=== PATIENT | female | born 1965 | race Caucasian/White ===

== ENCOUNTER 2020-10-08 09:06 | Outpatient (REF) | payer OTHER, SELFPAY ==
[2020-10-08 11:22] LABS: Glucose Urine UA NEG (NEG); Hemoglobin 15.3 g/dl (12.0-16.0); Leukocyte Esterase Urine NEG (NEG); Mean Corpuscular Volume 91.3 fL (80-98); Mean Platelet Volume 11.2 fL (9.4-12.3); Nitrite Urine NEG (NEG); PH 6.5 (5.0-8.0); Platelet Count 208 X10*3/uL (160-400); Red Blood Count 4.93 X10*6/uL (4.20-5.50); Red Cell Distribution Width 13.4 % (11.0-16.0); Urine Blood NEG (NEG); Urine Ketones NEG (NEG); Urine Protein NEG (NEG-TRACE); White Blood Count 3.8 X10*3/uL (4.8-10.8)
[2020-10-08 11:25] LABS: Appearance Urine CLEAR; Color Urine YELLOW
[2020-10-08 11:33] LABS: RBC Urine 0 /HPF (0); Squamous Epithelial Cell Urine 1+ /LPF; WBC Urine 0 /HPF (0-4)
[2020-10-08 12:06] LABS: TSH reflex Free T4 1.26 mIU/mL (0.32-4.0); Vitamin D 25-OH Total 40.6 ng/mL (>30)
[2020-10-08 12:20] LABS: Alanine Aminotransferase 23 U/L (0-31); Albumin Level 4.9 g/dL (3.5-5.0); Alkaline Phosphatase 58 U/L (39-117); Anion Gap 12 (12-20); Aspartate Amino Transferase 27 U/L (5-31); Bilirubin Total 0.7 mg/dL (0.0-1.0); Blood Urea Nitrogen 14 mg/dL (9-16); Calcium 9.3 mg/dL (8.4-10.2); Carbon Dioxide 32 mmol/L (22-29); Chloride 105 mmol/L (96-108); Estimated Glomerular Filt Rate > 60; Glucose Fasting 82 mg/dL (60-99); Potassium 4.4 mmol/L (3.3-5.1); Sodium 145 mmol/L (135-145)
[2020-10-08 12:26] LABS: Cholesterol 292 mg/dL; HDL Cholesterol 122 mg/dL; LDL Cholesterol Calculated 156 mg/dl; Triglycerides 74 mg/dL
== END 2020-10-08 09:07 | disposition home or self-care (01) ==
LOC: HO.HMGCLDS 09:06
PROVIDERS: PCP Internal Medicine; Visit Provider Internal Medicine
DX: Z00.00 Encounter for general adult medical examination without abnormal findings (principal); E03.9 Hypothyroidism, unspecified
CPT/HCPCS: 36415; 80053; 80061; 81001; 82306; 84443; 85027

== ENCOUNTER 2021-10-10 08:31 | Outpatient (REF) | payer OTHER, SELFPAY ==
[2021-10-10 11:39] LABS: Appearance Urine CLEAR; Color Urine YELLOW; Glucose Urine UA NEG (NEG); Leukocyte Esterase Urine NEG (NEG); Nitrite Urine NEG (NEG); PH 5.5 (5.0-8.0); Specific Gravity - Urine >= 1.030 (1.005-1.025); Urine Blood NEG (NEG); Urine Ketones 5 MG/DL (NEG); Urine Protein NEG (NEG-TRACE)
[2021-10-10 11:50] LABS: Hematocrit 43.9 % (37.0-47.0); Hemoglobin 14.4 g/dl (12.0-16.0); Mean Corpuscular HGB Conc 32.8 g/dl (31.0-35.0); Mean Corpuscular Hemoglobin 29.8 pg (27.0-33.0); Mean Corpuscular Volume 90.9 fL (80.0-98.0); Mean Platelet Volume 11.4 fL (9.4-12.3); Platelet Count 187 X10*3/uL (160-400); Red Blood Count 4.83 X10*6/uL (4.20-5.50); Red Cell Distribution Width 13.6 % (11.0-16.0); White Blood Count 4.8 X10*3/uL (4.8-10.8)
[2021-10-10 11:56] LABS: Mucus Urine TRACE /LPF; RBC Urine 0-2 /HPF (0); Squamous Epithelial Cell Urine TRACE /LPF; WBC Urine 0 /HPF (0-4)
[2021-10-10 12:15] LABS: Alanine Aminotransferase 22 U/L (0-31); Albumin Level 4.5 g/dL (3.5-5.0); Alkaline Phosphatase 45 U/L (39-117); Anion Gap 12 (12-20); Aspartate Amino Transferase 31 U/L (5-31); Bilirubin Total 0.6 mg/dL (0.0-1.0); Blood Urea Nitrogen 13 mg/dL (9-16); Calcium 9.7 mg/dL (8.4-10.2); Carbon Dioxide 30 mmol/L (22-29); Chloride 104 mmol/L (96-108); Cholesterol 274 mg/dL; Estimated Glomerular Filt Rate > 60; Glucose Fasting 81 mg/dL (60-99); HDL Cholesterol 130 mg/dL; LDL Cholesterol Calculated 133 mg/dl; Sodium 142 mmol/L (135-145); Total Protein 7.5 g/dL (6.5-8.0); Triglycerides 59 mg/dL
[2021-10-10 12:20] LABS: TSH reflex Free T4 2.07 uIU/mL (0.32-4.0)
== END 2021-10-10 08:32 | disposition home or self-care (01) ==
LOC: HO.HMGCLDS 08:31
PROVIDERS: PCP Internal Medicine; Visit Provider Internal Medicine
DX: Z00.00 Encounter for general adult medical examination without abnormal findings (principal); D70.9 Neutropenia, unspecified; E03.9 Hypothyroidism, unspecified
CPT/HCPCS: 36415; 80053; 80061; 81001; 84443; 85027

== ENCOUNTER 2022-11-07 08:07 | Outpatient (REF) | payer OTHER, SELFPAY ==
[2022-11-07 11:04] LABS: MANUAL DIFF FLAG NO
[2022-11-07 11:11] LABS: Basophils Percent Auto 1.1 % (0-2); Eosinophils Absolute Auto 0.1 X10*3/uL (0.0-0.4); Eosinophils Percent Auto 2.6 % (0-4); Hematocrit 42.1 % (37.0-47.0); Hemoglobin 14.4 g/dl (12.0-16.0); Lymphocytes Absolute Auto 1.1 X10*3/uL (1.2-4.9); Lymphocytes Percent Auto 30.7 % (20-40); Mean Corpuscular HGB Conc 34.2 g/dl (31.0-35.0); Mean Corpuscular Hemoglobin 30.3 pg (27.0-33.0); Mean Corpuscular Volume 88.4 fL (80.0-98.0); Mean Platelet Volume 11.1 fL (9.4-12.3); Monocytes Absolute Auto 0.4 X10*3/uL (0.1-1.2); Monocytes Percent Auto 10.3 % (2-11); Neutrophils Absolute Auto 1.9 x10*3/uL (2.0-8.3); Neutrophils Percent Auto 55.3 % (45-73); Platelet Count 210 X10*3/uL (160-400); Red Blood Count 4.76 X10*6/uL (4.20-5.50); Red Cell Distribution Width 13.6 % (11.0-16.0); White Blood Count 3.5 X10*3/uL (4.8-10.8)
[2022-11-07 11:28] LABS: Alanine Aminotransferase 34 U/L (0-31); Albumin Level 4.6 g/dL (3.5-5.0); Alkaline Phosphatase 47 U/L (39-117); Anion Gap 12 (12-20); Aspartate Amino Transferase 34 U/L (5-31); Bilirubin Total 0.5 mg/dL (0.0-1.0); Blood Urea Nitrogen 13 mg/dL (9-16); Calcium 9.5 mg/dL (8.4-10.2); Carbon Dioxide 30 mmol/L (22-29); Chloride 106 mmol/L (96-108); Cholesterol 306 mg/dL; Estimated Glomerular Filt Rate > 60; Glucose Fasting 87 mg/dL (60-99); HDL Cholesterol 129 mg/dL; Iron 73 mcg/dL (30-160); LDL Cholesterol Calculated 165 mg/dl; Percent Iron Saturation 23 % (15-50); Potassium 4.2 mmol/L (3.3-5.1); Sodium 144 mmol/L (135-145); Total Iron Binding Capacity 316 mcg/dL (228-428); Total Protein 7.5 g/dL (6.5-8.0); Triglycerides 60 mg/dL; Unsaturated Iron Binding 243 ug/dL
[2022-11-07 11:46] LABS: TSH reflex Free T4 1.58 uIU/mL (0.32-4.0); Vitamin D 25-OH Total 98.4 ng/mL (>30)
== END 2022-11-07 08:08 | disposition home or self-care (01) ==
LOC: HO.HMGCLDS 08:07
PROVIDERS: PCP Internal Medicine; Visit Provider Internal Medicine
DX: Z00.00 Encounter for general adult medical examination without abnormal findings (principal); E55.9 Vitamin D deficiency, unspecified; E78.5 Hyperlipidemia, unspecified; E03.9 Hypothyroidism, unspecified; D70.9 Neutropenia, unspecified; Z78.0 Asymptomatic menopausal state
CPT/HCPCS: 36415; 80053; 80061; 82306; 83540; 84443; 85025

== ENCOUNTER 2023-01-22 08:50 | Outpatient (REF) | payer OTHER, SELFPAY ==
[2023-01-22 12:10] LABS: Alanine Aminotransferase 43 U/L (0-31); Albumin Level 4.7 g/dL (3.5-5.0); Alkaline Phosphatase 53 U/L (39-117); Anion Gap 10 (12-20); Aspartate Amino Transferase 43 U/L (5-31); Bilirubin Total 0.5 mg/dL (0.0-1.0); Blood Urea Nitrogen 14 mg/dL (9-16); Calcium 9.5 mg/dL (8.4-10.2); Carbon Dioxide 31 mmol/L (22-29); Chloride 105 mmol/L (96-108); Cholesterol 284 mg/dL; Estimated Glomerular Filt Rate > 60; Glucose Random 80 mg/dL (60-115); HDL Cholesterol 137 mg/dL; LDL Cholesterol Calculated 136 mg/dl; Potassium 4.1 mmol/L (3.3-5.1); Sodium 142 mmol/L (135-145); Total Protein 7.6 g/dL (6.5-8.0); Triglycerides 56 mg/dL
== END 2023-01-22 08:51 | disposition home or self-care (01) ==
LOC: HO.HMGCLDS 08:50
PROVIDERS: PCP Internal Medicine; Visit Provider Internal Medicine
DX: E78.5 Hyperlipidemia, unspecified (principal)
CPT/HCPCS: 36415; 80053; 80061

== ENCOUNTER 2023-02-28 08:17 | Outpatient (REF) | payer OTHER, SELFPAY ==
--- NOTE | ~2023-02-28 | US_ITS ---
EXAMINATION: US ABDOMEN LIMITED CLINICAL INFORMATION: Elevated LFTs. COMPARISON: None available. TECHNIQUE: Real-time imaging of the right upper quadrant abdominal viscera. FINDINGS: PANCREAS: Normal. LIVER: Normal. The liver is normal in size. The liver contour is normal. There is diffuse increased liver parenchymal echogenicity, consistent with hepatic steatosis. No focal hepatic lesion. There is no intrahepatic biliary duct dilatation seen. GALLBLADDER: The gallbladder is physiologically distended without evidence of stones, sludge, polyps, wall thickening or pericholecystic fluid. COMMON BILE DUCT: Normal in caliber measuring 0.51 cm in diameter. RIGHT KIDNEY: No hydronephrosis. No renal calculi or focal parenchymal lesions. The kidney measures 10.6 cm in maximum dimension. FREE FLUID: None. US/US abdomen limited IMPRESSION: Hepatic steatosis.
[2023-02-28 12:00] LABS: Alanine Aminotransferase 29 U/L (0-31); Albumin Level 4.4 g/dL (3.5-5.0); Alkaline Phosphatase 42 U/L (39-117); Aspartate Amino Transferase 30 U/L (5-31); Bilirubin Direct 0.3 mg/dL (0.0-0.5); Bilirubin Total 0.8 mg/dL (0.0-1.0); Total Protein 7.4 g/dL (6.5-8.0)
[2023-02-28 12:15] LABS: HBS Num1 0.16 mIU/mL (0-7.99); HBc Num1 0.13 S/CO (0.00-0.79); HBsAGNum1 0.32 S/CO (0.00-0.99); Hepatitis B Core Antibody Nonreactive (Nonreactive); Hepatitis B Surface Antigen Negative (Negative); ~HepC Num1 0.09 S/CO (0.00-0.79); ~Hepatitis B Surface Antibody NONREACTIVE (Nonreactive); ~Hepatitis C Antibody Nonreactive (Nonreactive)
== END 2023-02-28 08:18 | disposition home or self-care (01) ==
LOC: HO.HMGCX 08:17
PROVIDERS: PCP Internal Medicine; Visit Provider Internal Medicine
DX: R79.89 Other specified abnormal findings of blood chemistry (principal)
CPT/HCPCS: 36415; 76705; 80076; 86704; 86706; 86803; 87340

== ENCOUNTER 2023-11-09 07:29 | Outpatient (AMB) | payer OTHER, SELFPAY ==
[2023-11-09 07:30] VITALS: BP 118/76; PULSE 70; O2SAT 98; BMI 18.1
--- NOTE | 2023-11-09 07:30 | MHC.PC.OV ---
Vital Signs 11/09/23 07:30 Height 5 ft 6 in Weight 112 lb BMI 18.1 BP 118/76 Blood Pressure Location Lt brachial Position Sitting Pulse 70 Pulse Source Pulse Oximeter Pulse Oximetry (%) 98 Oxygen Delivery Method Room Air Intake Visit Reasons: PE Intake Note: Pt is here today for PE. Allergies No Known Allergies Allergy (Verified 11/09/23 07:33) Medication List - Last Reconciled 11/09/23 by Lisy Brizuela MD finasteride 5 mg PO DAILY latanoprost 0.005% 1 drp ophthalmic (eye) BEDTIME levothyroxine 50 mcg PO DAILY lifitegrast 5% (Xiidra) drps ophthalmic (eye) minoxidil 5 mg PO DAILY naltrexone 50 mg PO DAILY pravastatin 20 mg PO DAILY Tobacco use date assessed: 11/09/23 Dental Screening Dental Screen Date: 11/09/23 Did you have a dental visit in the last 12 months?: Yes Did you have a dental problem in the last 6 months where you did not have access to dental care?: No Was dental information given to patient?: Patient has dentist HPI PE HPI Details Patient presents for physical. PFSH Medical History (Updated 11/09/23 @ 15:16 by Lisy Brizuela MD) Alopecia Neutropenia Hyperlipidemia Hypothyroid Annual physical exam Fibroids Surgical History H/O colonoscopy Family History Father Substance use disorder Mother Mental health disorder Social History Housing: House Alcohol intake: current Alcohol intake frequency: a few times a week Patient Tobacco Use Status: Never used Tobacco e-Cigarette/Vaping Use: Never Used Second Hand Smoke Exposure: No service: No Current occupational status: employed Cognitive needs: No Hearing needs: No Vision needs: Yes Questionnaire Thrive Questionnaire Date Thrive assessed: 11/07/22 SOPHIA-7 AMB Questionnaire SOPHIA-7 Date SOPHIA - 7 assessed: 11/07/22 Source: Developed by Drs. Buck Mccallum, Eliza Guy, Marek Brandon and colleagues, with an educational anna from [employer]. Review of Systems Const All systems reviewed & are unremarkable except as noted in HPI and below Reports no additional complaints Eyes Reports no additional complaints ENT Reports no additional complaints Card Reports no additional complaints Resp Reports no additional complaints GI Reports no additional complaints Reports no additional complaints Physical exam (Primary Care) Vital Signs: Last Vital Signs Pulse 70 11/09/23 07:30 BP 118/76 11/09/23 07:30 Pulse Ox 98 11/09/23 07:30 Oxygen Delivery Method Room Air 11/09/23 07:30 BMI result Body Mass Index 18.1 Tobacco/Smoking Status: Tobacco use Status Tobacco use date assessed 11/09/23 11/09/23 07:36 Patient Tobacco Use Status Never used Tobacco 11/09/23 07:36 e-Cigarette/Vaping Use Never Used 11/09/23 07:30 Thrive Assessment: Date of Thrive Assessment Date Thrive assessed 11/07/22 11/09/23 07:30 Const General: no acute distress HENMT Head: Yes normal to inspection Face and sinus: Yes normal facial exam Neck Neck: Yes no lymphadenopathy and Yes supple Resp Effort & Inspection: normal respiratory effort Auscultation: clear to auscultation bilaterally Cardio Rhythm: regular rhythm Heart sounds: S1 normal heart sound present and S2 normal heart sound present GI Inspection: Yes normal to inspection Palpation (GI): Soft to palpation Percussion: Yes normal to percussion Auscultation: normal bowel sounds Assessment and Plan Assessment & Plan (1) Hyperlipidemia: Code(s): E78.5 - Hyperlipidemia, unspecified Plan: Start 20 mg of pravastatin check lipid profile in 2 months (2) Alopecia: Comment: f/u Dr. Santizo Code(s): L65.9 - Nonscarring hair loss, unspecified Plan: Continue current medications (3) Neutropenia: Comment: stable CBC, monitoring Code(s): D70.9 - Neutropenia, unspecified Plan: Monitor CBC (4) Hypothyroid: Code(s): E03.9 - Hypothyroidism, unspecified Plan: Continue levothyroxine (5) Annual physical exam: Code(s): Z00.00 - Encounter for general adult medical examination without abnormal findings Plan: Well-balanced diet regular physical activity discussed with the patient mammogram will be scheduled Orders: Orders Lipid Panel 2 Months E78.5 - Hyperlipidemia, unspecified MM screening mammo BI 9 Months Z12.31 - Encounter for screening mammogram for malignant neoplasm of breast Medications: New pravastatin 20 mg PO DAILY 90 tabs 1RF Discontinued pravastatin Discontinued Reason: Doctor's Order 20 mg PO DAILY 90 tabs 3RF Coding Level of Care Code Est Pt Prev Care 40-64y(29282) Diagnoses Hyperlipidemia E78.5 Alopecia L65.9 Neutropenia D70.9 Hypothyroid E03.9 Annual physical exam Z00.00
== END 2023-11-09 08:18 | disposition home or self-care (01) ==
PROVIDERS: PCP Internal Medicine; Visit Provider Internal Medicine
DX: E78.5 Hyperlipidemia, unspecified (principal); L65.9 Nonscarring hair loss, unspecified; D70.9 Neutropenia, unspecified; E03.9 Hypothyroidism, unspecified; Z00.00 Encounter for general adult medical examination without abnormal findings
CPT/HCPCS: 99396

== ENCOUNTER 2024-01-09 13:41 | Outpatient (AMB) | payer OTHER, SELFPAY ==
[2024-01-09 13:54] VITALS: BP 132/80; PULSE 70; O2SAT 100; BMI 18.1
--- NOTE | 2024-01-09 13:54 | A.OFFPC_ITS ---
Vital Signs 01/09/24 13:54 Height 5 ft 6 in Weight 112 lb BMI 18.1 BP 132/80 Blood Pressure Location Rt brachial Position Sitting Pulse 70 Pulse Source Pulse Oximeter Pulse Oximetry (%) 100 Oxygen Delivery Method Room Air Intake Visit Reasons: 2 month follow up Intake Note: Pt is here today for 2 months follow up visit. Allergies No Known Allergies Allergy (Verified 01/09/24 13:57) Tobacco use date assessed: 01/09/24 Dental Screening Dental Screen Date: 11/09/23 HPI HPI Comments History of Present Illness Details Pt presents for PE. Patient complains of feeling tired on pravastatin. [facility] Medical History (Updated 01/09/24 @ 15:27 by Lisy Brizuela MD) Alopecia Neutropenia Hyperlipidemia Hypothyroid Annual physical exam Fibroids Surgical History H/O colonoscopy Family History Father Substance use disorder Mother Mental health disorder Social History Housing: House Alcohol intake: current Alcohol intake frequency: a few times a week Patient Tobacco Use Status: Never used Tobacco e-Cigarette/Vaping Use: Never Used Second Hand Smoke Exposure: No service: No Current occupational status: employed Cognitive needs: No Hearing needs: No Vision needs: Yes Questionnaire PHQ-9 Over the last 2 weeks, how often have you been bothered by any of the following problems? 1. Little interest or pleasure in doing things: not at all 2. Feeling down, depressed, or hopeless: not at all 3. Trouble falling or staying asleep, or sleeping too much: several days 4. Feeling tired or having little energy: several days 5. Poor appetite or overeating: not at all 6. Feeling bad about yourself - or that you are a failure or have let yourself or your family down: not at all 7. Trouble concentrating on things, such as reading the newspaper or watching television: not at all 8. Moving or speaking so slowly that other people could have noticed. Or the opposite - being so fidgety or restless that you have been moving around a lot more than usual: not at all 9. Thoughts that you would be better off or of hurting yourself in some way: not at all Total score: 2 Depression Screening Interpretation: Negative Depression Screening Done: Yes Source: Developed by Drs. Buck Mccallum, Marek Alves and colleagues, with an educational anna from [employer]. Thrive Questionnaire Date Thrive assessed: 01/09/24 I am a: Patient What is your living situation today?: I have a steady place to live Within the past 12 months, did the food you bought not last and you didn't have the money to get more?: Never true Within the past 12 months, did you worry whether your food would run out before you got money to buy more?: Never true Do you have trouble paying for medicines?: No Do you have trouble getting transportation to medical appointments?: No Do you have trouble paying your heating and electricity bill?: No Do you have trouble taking care of your child, family member or friend?: No Do you have trouble with day-to-day activities such as bathing, preparing meals, shopping, managing finances, etc.?: No Are you currently unemployed and looking for a job?: No Are you interested in more education?: No Please select the resources that you would like help with: None THRIVE Score: 0 SOPHIA-7 AMB Questionnaire SOPHIA-7 Date SOPHIA - 7 assessed: 01/09/24 Feeling nervous, anxious, or on edge: 0 = Not at all Not being able to stop or control worryin = Not at all Worrying too much about different things: 0 = Not at all Trouble relaxin = Not at all Being so restless that it is hard to sit still: 0 = Not at all Becoming easily annoyed or irritable: 0 = Not at all Feeling afraid as if something awful might happen: 0 = Not at all Total SOPHIA-7 score (0-4 normal; 5-9 mild; 10-14 moderate; 15-21 severe): 0 Source: Developed by Drs. Buck Mccallum, Marek Alves and colleagues, with an educational anna from [employer]. Review of Systems Const All systems reviewed & are unremarkable except as noted in HPI and below Reports no additional complaints Eyes Reports no additional complaints ENT Reports no additional complaints Card Reports no additional complaints Resp Reports no additional complaints GI Reports no additional complaints Reports no additional complaints Physical exam (Primary Care) Vital Signs: Last Vital Signs Pulse 70 01/09/24 13:54 BP 132/80 01/09/24 13:54 Pulse Ox 100 01/09/24 13:54 Oxygen Delivery Method Room Air 01/09/24 13:54 BMI result Body Mass Index 18.1 Tobacco/Smoking Status: Tobacco use Status Tobacco use date assessed 01/09/24 01/09/24 13:59 Patient Tobacco Use Status Never used Tobacco 01/09/24 13:59 e-Cigarette/Vaping Use Never Used 01/09/24 13:59 PHQ-9: PHQ-9 Score PHQ-9: Total score 2 01/09/24 14:00 Depression Screening Interpretation: Negative Thrive Assessment: Date of Thrive Assessment Date Thrive assessed 01/09/24 01/09/24 14:00 Const General: no acute distress HENMT Head: Yes normal to inspection General nose exam: Normal external nose present Face and sinus: Yes normal facial exam Eyes General: appearance normal, both eyes and all related structures Neck Neck: Yes supple Resp Effort & Inspection: normal respiratory effort Auscultation: clear to auscultation bilaterally Cardio Rhythm: regular rhythm Heart sounds: S1 normal heart sound present and S2 normal heart sound present GI Inspection: Yes normal to inspection Palpation (GI): Soft to palpation Percussion: Yes normal to percussion Auscultation: normal bowel sounds Assessment and Plan Assessment & Plan (1) Annual physical exam: Code(s): Z00.00 - Encounter for general adult medical examination without abnormal findings Plan: Well-balanced diet regular physical activity discussed with the patient. She is up-to-date with colonoscopy and mammogram (2) Hyperlipidemia: Comment: Pravastatin caused fatigue and lower back pain Code(s): E78.5 - Hyperlipidemia, unspecified Plan: Change pravastatin to Zetia 10 mg and check lipid profile in 3 months. Continue low-cholesterol diet return in 1 year for physical or as needed Orders: Orders Comprehensive [place]. Panel Fast 1 Year D70.9 - Neutropenia, unspecified, E03.9 - Hypothyroidism, unspecified, E55.9 - Vitamin D deficiency, unspecified, E78.5 - Hyperlipidemia, unspecified, Z00.00 - Encounter for general adult medical examination without abnormal findings Vitamin D 25-OH Total 1 Year D70.9 - Neutropenia, unspecified, E03.9 - Hypothyroidism, unspecified, E55.9 - Vitamin D deficiency, unspecified, E78.5 - Hyperlipidemia, unspecified, Z00.00 - Encounter for general adult medical examination without abnormal findings Lipid Panel 3 Months D70.9 - Neutropenia, unspecified, E03.9 - Hypothyroidism, unspecified, E55.9 - Vitamin D deficiency, unspecified, E78.5 - Hyperlipidemia, unspecified, Z00.00 - Encounter for general adult medical examination without abnormal findings Lipid Panel 1 Year D70.9 - Neutropenia, unspecified, E03.9 - Hypothyroidism, unspecified, E55.9 - Vitamin D deficiency, unspecified, E78.5 - Hyperlipidemia, unspecified, Z00.00 - Encounter for general adult medical examination without abnormal findings Complete Blood Count Auto Diff 1 Year D70.9 - Neutropenia, unspecified, E03.9 - Hypothyroidism, unspecified, E55.9 - Vitamin D deficiency, unspecified, E78.5 - Hyperlipidemia, unspecified, Z00.00 - Encounter for general adult medical examination without abnormal findings TSH reflex Free T4 1 Year D70.9 - Neutropenia, unspecified, E03.9 - Hypothyroidism, unspecified, E55.9 - Vitamin D deficiency, unspecified, E78.5 - Hyperlipidemia, unspecified, Z00.00 - Encounter for general adult medical examination without abnormal findings Medications: New ezetimibe (Zetia) 10 mg PO DAILY 90 tabs 3RF Coding Level of Care Code Est Pt Prev Care 40-64y(44245) Diagnoses Annual physical exam Z00.00 Hyperlipidemia E78.5
== END 2024-01-09 14:38 | disposition home or self-care (01) ==
PROVIDERS: PCP Internal Medicine; Visit Provider Internal Medicine
DX: Z00.00 Encounter for general adult medical examination without abnormal findings (principal); E78.5 Hyperlipidemia, unspecified
CPT/HCPCS: 99396

== ENCOUNTER 2024-11-27 08:11 | Outpatient (AMB) | payer OTHER, SELFPAY ==
--- NOTE | 2024-11-27 08:14 | A.OFFPC_ITS ---
Vital Signs 11/27/24 08:18 Height 5 ft 6 in Weight 109 lb BMI 17.6 BP 106/66 Blood Pressure Location Lt brachial Position Sitting Respiration 18 Pulse 70 Pulse Source Pulse Oximeter Temp 98.5 F Temp Source Oral Pulse Oximetry (%) 100 Oxygen Delivery Method Room Air Intake Visit Reasons: PE Intake Note: Pt is here today for PE. Allergies pravastatin Adverse Reaction (Intermediate, Verified 11/27/24 08:39) Fatigued Medication List - Last Reconciled 11/27/24 by Lisy Brizuela MD ezetimibe (Zetia) 10 mg PO DAILY finasteride 5 mg PO DAILY latanoprost 0.005% 1 drp ophthalmic (eye) BEDTIME levothyroxine 50 mcg PO DAILY lifitegrast 5% (Xiidra) drps ophthalmic (eye) minoxidil 5 mg PO DAILY Tobacco use date assessed: 11/27/24 Dental Screening Dental Screen Date: 11/27/24 Did you have a dental visit in the last 12 months?: Yes Did you have a dental problem in the last 6 months where you did not have access to dental care?: No Was dental information given to patient?: Patient has dentist HPI PE HPI Details Pt presents for PE PFSH Medical History Alopecia Neutropenia Hyperlipidemia Hypothyroid Annual physical exam Fibroids Surgical History H/O colonoscopy Family History Father Substance use disorder Lung cancer Mother Mental health disorder Diabetes Social History Housing: House Alcohol intake: current Alcohol intake frequency: a few times a week Patient Tobacco Use Status: Never used Tobacco e-Cigarette/Vaping Use: Never Used Second Hand Smoke Exposure: No service: No Current occupational status: employed Cognitive needs: No Hearing needs: No Vision needs: Yes Questionnaire PHQ-9 Over the last 2 weeks, how often have you been bothered by any of the following problems? 1. Little interest or pleasure in doing things: not at all 2. Feeling down, depressed, or hopeless: not at all 3. Trouble falling or staying asleep, or sleeping too much: several days 4. Feeling tired or having little energy: several days 5. Poor appetite or overeating: several days 6. Feeling bad about yourself - or that you are a failure or have let yourself or your family down: not at all 7. Trouble concentrating on things, such as reading the newspaper or watching television: not at all 8. Moving or speaking so slowly that other people could have noticed. Or the opposite - being so fidgety or restless that you have been moving around a lot more than usual: not at all 9. Thoughts that you would be better off or of hurting yourself in some way: not at all Total score: 3 Depression Screening Interpretation: Negative Depression Screening Done: Yes 56329 - PHQ-9 Billing: Yes Source: Developed by Drs. Buck Mccallum, Eliza Guy, Marek Brandon and colleagues, with an educational anna from [employer] Thrive Questionnaire Date Thrive assessed: 11/27/24 I am a: Patient What is your living situation today?: I have a steady place to live Within the past 12 months, did the food you bought not last and you didn't have the money to get more?: Never true Within the past 12 months, did you worry whether your food would run out before you got money to buy more?: Never true Do you have trouble paying for medicines?: No Do you have trouble getting transportation to medical appointments?: No Do you have trouble paying your heating and electricity bill?: No Do you have trouble taking care of your child, family member or friend?: No Do you have trouble with day-to-day activities such as bathing, preparing meals, shopping, managing finances, etc.?: No Are you currently unemployed and looking for a job?: No Are you interested in more education?: No Please select the resources that you would like help with: None Currently or been in a relationship where the following occur: No concerns reported THRIVE Score: 0 AUDIT C Alcohol Use Questionnaire (AUDIT-C) 1. How often do you have a drink containing alcohol?: 4 or more times a week 2. How many drinks containing alcohol do you have on a typical day when you are drinking?: 1 or 2 3. How often do you have six or more drinks on one occasion?: Never Total Score: 4 SOPHIA-7 AMB Questionnaire SOPHIA-7 Date SOPHIA - 7 assessed: 11/27/24 Feeling nervous, anxious, or on edge: 0 = Not at all Not being able to stop or control worryin = Not at all Worrying too much about different things: 1 = Several days Trouble relaxin = Not at all Being so restless that it is hard to sit still: 0 = Not at all Becoming easily annoyed or irritable: 0 = Not at all Feeling afraid as if something awful might happen: 0 = Not at all Total SOPHIA-7 score (0-4 normal; 5-9 mild; 10-14 moderate; 15-21 severe): 1 Source: Developed by Drs. Buck Mccallum, Eliza Guy, Marek Brandon and colleagues, with an educational anna from [employer] SOPHIA-7 Assessment Billing SOPHIA-7 Assessment Tool: SOPHIA-7 Assessment 11702 Review of Systems Const All systems reviewed & are unremarkable except as noted in HPI and below Reports no additional complaints Eyes Reports no additional complaints ENT Reports no additional complaints Card Reports no additional complaints Resp Reports no additional complaints GI Reports no additional complaints Reports no additional complaints Physical exam (Primary Care) Vital Signs: Last Vital Signs Temp 98.5 F 11/27/24 08:18 Pulse 70 11/27/24 08:18 Resp 18 11/27/24 08:18 BP 106/66 11/27/24 08:18 Pulse Ox 100 11/27/24 08:18 Oxygen Delivery Method Room Air 11/27/24 08:18 BMI result Body Mass Index 17.6 Tobacco/Smoking Status: Tobacco use Status Tobacco use date assessed 11/27/24 11/27/24 08:24 Patient Tobacco Use Status Never used Tobacco 11/27/24 08:24 e-Cigarette/Vaping Use Never Used 11/27/24 08:15 PHQ-9: PHQ-9 Score PHQ-9: Total score 3 11/27/24 08:24 Depression Screening Interpretation: Negative Thrive Assessment: Date of Thrive Assessment Date Thrive assessed 11/27/24 11/27/24 08:24 Currently or been in a relationship where the following occur: No concerns reported Const General: no acute distress HENMT Head: Yes normal to inspection Ears: hearing grossly normal bilaterally General nose exam: Normal external nose present Face and sinus: Yes normal facial exam Mouth: Normal oral and palatal mucosa present Eyes General: appearance normal, both eyes and all related structures Neck Neck: Yes no lymphadenopathy and Yes supple Resp Effort & Inspection: normal respiratory effort Auscultation: clear to auscultation bilaterally Cardio Rhythm: regular rhythm Heart sounds: S1 normal heart sound present and S2 normal heart sound present GI Inspection: Yes normal to inspection Palpation (GI): Soft to palpation Percussion: Yes normal to percussion Auscultation: normal bowel sounds Coding Level of Care Code Est Pt Prev Care 40-64y(21200) Diagnoses Postmenopausal Z78.0 Hypothyroid E03.9 Hyperlipidemia E78.5 Neutropenia D70.9 Vitamin D deficiency E55.9 Annual physical exam Z00.00 Additional Codes SOPHIA-7 Assessment Billing - SOPHIA-7 Assessment Tool: SOPHIA-7 Assessment 88181 ([id number]) PHQ-9 - 33010 - PHQ-9 Billing: Yes ([id number]) Assessment & Plan Assessment & Plan (1) Postmenopausal: Code(s): Z78.0 - Asymptomatic menopausal state Category: Medical Plan: check DEXA (2) Hypothyroid: Code(s): E03.9 - Hypothyroidism, unspecified Category: Medical Plan: Continue Levothyroxine (3) Hyperlipidemia: Comment: Pravastatin caused fatigue and lower back pain Code(s): E78.5 - Hyperlipidemia, unspecified Category: Medical Plan: cont Zetia, [facility] and results are not available. She will fax the results to the office (4) Neutropenia: Comment: stable CBC, monitoring Code(s): D70.9 - Neutropenia, unspecified Category: Medical Plan: Monitor CBC (5) Vitamin D deficiency: Code(s): E55.9 - Vitamin D deficiency, unspecified Category: Medical Plan: Patient will start vitamin-D supplement 1000 units a day (6) Annual physical exam: Code(s): Z00.00 - Encounter for general adult medical examination without abnormal findings Category: Medical Plan: Well-balanced diet regular physical activity discussed with the patient return in 1 year Orders: Orders Comprehensive [place]. Panel Fast 1 Year D70.9 - Neutropenia, unspecified, E03.9 - Hypothyroidism, unspecified, E55.9 - Vitamin D deficiency, unspecified, E78.5 - Hyperlipidemia, unspecified TSH reflex Free T4 1 Year D70.9 - Neutropenia, unspecified, E03.9 - Hypothyroidism, unspecified, E55.9 - Vitamin D deficiency, unspecified, E78.5 - Hyperlipidemia, unspecified AMB EKG-In Office Today E03.9 - Hypothyroidism, unspecified, E78.5 - Hyperlipidemia, unspecified, Z00.00 - Encounter for general adult medical examination without abnormal findings XR DEXA axial skeleton Today Z78.0 - Asymptomatic menopausal state Complete Blood Count Auto Diff 1 Year D70.9 - Neutropenia, unspecified, E03.9 - Hypothyroidism, unspecified, E55.9 - Vitamin D deficiency, unspecified, E78.5 - Hyperlipidemia, unspecified Lipid Panel 1 Year D70.9 - Neutropenia, unspecified, E03.9 - Hypothyroidism, unspecified, E55.9 - Vitamin D deficiency, unspecified, E78.5 - Hyperlipidemia, unspecified Vitamin D 25-OH Total 1 Year D70.9 - Neutropenia, unspecified, E03.9 - Hypothyroidism, unspecified, E55.9 - Vitamin D deficiency, unspecified, E78.5 - Hyperlipidemia, unspecified
[2024-11-27 08:18] VITALS: BP 106/66; PULSE 70; RESP 18; TEMP 36.9; O2SAT 100; BMI 17.6
== END 2024-11-27 08:59 | disposition home or self-care (01) ==
LOC: HO.HMCC 08:11
PROVIDERS: PCP Internal Medicine; Visit Provider Internal Medicine
DX: Z00.00 Encounter for general adult medical examination without abnormal findings (principal); D70.9 Neutropenia, unspecified; Z78.0 Asymptomatic menopausal state; E03.9 Hypothyroidism, unspecified; E78.5 Hyperlipidemia, unspecified; E55.9 Vitamin D deficiency, unspecified

== ENCOUNTER → 2024-11-27 08:11 | Outpatient (BNVA) | payer OTHER, SELFPAY | PROVIDERS: PCP Internal Medicine; Visit Provider Internal Medicine | DX: Z00.00 Encounter for general adult medical examination without abnormal findings (principal); E03.9 Hypothyroidism, unspecified; E78.5 Hyperlipidemia, unspecified; D70.9 Neutropenia, unspecified; E55.9 Vitamin D deficiency, unspecified; Z78.0 Asymptomatic menopausal state; Z79.899 Other long term (current) drug therapy | CPT/HCPCS: 96127 ==

== ENCOUNTER 2024-12-26 08:26 | Outpatient (REF) | payer OTHER, SELFPAY ==
--- NOTE | ~2024-12-26 | MM_ITS ---
EXAMINATION: DXA BONE DENSITY AXIAL HISTORY: Z78.0 - Asymptomatic menopausal state TECHNIQUE: [employer] Dual energy absorptiometry (DEXA) of the lumbar spine, total left hip, and femoral neck was performed. COMPARISON: There are no prior studies for comparison. FINDINGS: The bone mineral density of the lumbar spine is 1.242 with a T-score of 0.5, and a Z-score of 2.1. This is indicative of normal bone mineral density. The bone mineral density of the left total hip is 1.030 with a T-score of 0.2, and a Z-score of 1.4. This is indicative of normal bone mineral density. The bone mineral density of the left femoral neck is 0.981 with a T-score of -0.4, and a Z-score of 1.1. This is indicative of normal bone mineral density. FRACTURE RISK: The FRAX index suggests a risk of major osteoporotic fracture of 10.1%, and of hip fracture 0.2%. MM/XR DEXA axial skeleton IMPRESSION: Based on bone mineral density, and according to World Health Organization (WHO) criteria, the diagnosis is consistent with normal bone mineral density. All bone density values are in grams per centimeter squared (g/cm2). Statistically, 68% of repeat scans fall within 1 SD (+/- 0.010 g/cm2 for AP spine L1-L4) and 1 SD (+/- 0.012 g/cm2 for femur total) FRAX is a trademark of the [employer] [place] for Metabolic Bone Disease, a World Health Organization (WHO) Collaborating Center. Electronically signed by: Buck Diaz MD 12/26/2024 09:20 AM EDT
--- OUTSIDE RECORDS SUMMARY | 2024-12-26 08:47 | XMS_ITS | Clinical Summary ---
Author Organization [facility] Address [address] [place] [id number] Phone Care Team Providers Care Bin Packer Name Role Phone Lisy Brizuela MD Primary Care Provider [phone] Allergies No known active allergies Medications Medication Sig Dispensed Refills Start Date End Date Status FINASTERIDE ORAL Take by mouth. Acti ve CYCLOSPORINE (RESTASIS OPHT) Apply to eye. Active LEVOTHYROXINE SODIUM (SYNTHROID ORAL) Take by mouth. Acti ve Active Problems No known active problems Family History Medical History Relation Comments Arthritis Father Lung cancer Father Arthritis Mother Coronary artery disease Mother Relation Status Comments Father Alive Mother Alive Social History Tobacco Use Types Packs/Day Years Used Date Smoking Tobacco: Never Education Answer Date Recorded Are you interested in more education? Not on payal e 01/05/2023 Are you concerned about learning? Not on file 01/05/2023 No 01/05/2023 No 01/05/2023 Digital Access Answer Date Recorded No 02/05/2023 No 02/05/2023 No 02/05/2023 Reliable internet access at home? Not on file 02/05/2023 Device with a working camera? Not on file Sex and Gender Information Value Date Recorded Sex Assigned at Not on file Gender Identity Not on file Sexual Orientation Not on file Last Filed Vital Signs Vital Sign Reading Time Taken Comments Blood Pressure - - Pulse - - Temperature 36.2 ??C (97.2 ??F) 03/23/2016 3:25 PM ED T Respiratory Rate - - Oxygen Saturation - - Inhaled Oxygen Concentration - - Weight 50.8 kg (112 lb) 03/23/2016 3:25 PM EDT Height 167.6 cm (5' 6 ) 03/23/2016 3:25 PM EDT Body Mass Index 18.08 03/23/2016 3:25 PM EDT Plan of Treatment Health Maintenance Due Date Last Done Comments LIPID PANEL 1966 TSH LEVEL 1966 DEPRESSION SCREENING 1978 HEPATITIS B SCREENING 1984 HEPATITIS C SCREENING 1984 HIV ONE-TIME SCREENING (18-6 5 YEARS) 1984 HEPATITIS B VACCINES (1 of 3 - 19+ 3-dose series) 1985 PAP SMEAR 1987 SMOKING STATUS SCREENING (On ce After 26 Yrs) 1992 MAMMOGRAM 2006 COLOGUARD 2011 COLONOSCOPY 2011 COLORECTAL CANCER SCREENING 2011 FIT TEST 2011 FOBT 2011 SIGMOIDOSCOPY 2011 VIRTUAL COLONOSCOPY 2011 PNEUMOCOCCAL VACCINES (50+ years) (1 of 1 - PCV) 2016 INFLUENZA VACCINE (#1) 2024 COVID-19 VACCINE (3 - 2023-2 5 season) 2024 12/21/2020, 11/21/2020 Adult Td,Tdap Booster 06/06/2025 06/06/2015 ZOSTER VACCINES Completed 03/31/2019, 01/12/2019 HEPATITIS A VACCINES Aged Out No long er eligible based on patient's age to complete this topic HIB VACCINES Aged Out No longer eligi ble based on patient's age to complete this topic MENINGOCOCCAL VACCINES (ACWY) Aged Out No longer eligible based on patient's age to complete this topic Medical Devices Not on file NoviceBritton camachoKayli Personal/Family Self 1965 [address] [facility] [place] [address] Kayli Barber Personal/Family Self 1965 [address] [facility] [place] [address] Novice, Kayli Personal/Family Self 1965 [address] [facility] [place] [address] Novice, Kayli Personal/Family Self 1965 [address] [facility] [place] [address] Novice, Kayli Personal/Family Self 1965 [address] [facility] [place] [address] Novice, Kayli Personal/Family Self 1965 [address] [facility] [place] [address] Novice, Kayli Personal/Family Self 1965 [address] [facility] [place] [address] Novice, Kayli Personal/Family Self 1965 [address] [facility] [place] [address] Care Teams Bin Packer Relationship Specialty Start Date End Date Lisy Brizuela MD [address] [place] [address] PCP - General Internal Medicine 03/09/16 Additional Source Comments The information contained in this document represents components of the legal health record. It is not the complete legal health record.[facility]
--- OUTSIDE RECORDS SUMMARY | 2024-12-26 08:47 | XMS_ITS | Clinical Summary ---
Author Organization [facility] Address [address] [place] [address] Care Team Providers Care Associate Professor Of Geography Name Role Phone Pcp, No Primary Care Provider [phone] Allergies No known active allergies Medications No known medications Social History Tobacco Use Types Packs/Day Years Used Date Smoking Tobacco: Never Comments No Sex and Gender Information Value Date Recorded Sex Assigned at Not on file Legal Sex Female 9:42 AM EDT Gender Identity Not on file Sexual Orientation Not on file Last Filed Vital Signs Vital Sign Reading Time Taken Comments Blood Pressure 104/64 12/02/2016 10:56 AM EDT Pulse 75 12/02/2016 10:56 AM EDT Temperature 36.9 ??C (98.5 ??F) 12/02/2016 10:56 AM E DT Respiratory Rate 19 12/02/2016 10:56 AM EDT Oxygen Saturation 98% 12/02/2016 10:56 AM EDT Inhaled Oxygen Concentration - - Weight - - Height - - Body Mass Index - - Plan of Treatment Health Maintenance Due Date Last Done Comments Colorectal Cancer: COLONOSCO PY Screening every 10 yrs (or Modifier) 1966 Depression: Screening Annual ly using PHQ-2/9 in Adults 18 yrs or above (or HM Modifier)([facility]) 1966 Hepatitis C Virus Infection in Adolescents and Adults: Screening (or Modifier) ([facility]) 1984 SDOH Screening Reminder: Kat daniel for all adults ([facility]) 1984 Tobacco Smoking Cessation: i n Adults excluding Women: Behavioral and Pharmacotherapy Interventions ([facility]) 1984 DTaP/Tdap/Td Vaccines ([facility]) (1 - Tdap) 1985 Cervical Cancer Screenin 1-65 yrs of age (or Modifier) 1987 Cervical Cancer Screening: P ap every 3 yrs pts age 21-65 1987 Cervical Cancer: Pap Screeni ng with Modifier timing ([facility]) 1987 Cervical Cancer: hrHPV alone or with cotesting Pap for Pts 30-65yrs screening every 5yrs ([facility]) 1987 Colorectal Cancer Screening 45 -75 Yrs (or HM Modifier ) 2011 Colorectal Cancer: FLEXIBLE SIGMOIDOSCOPY Screening every 5 yrs 2011 Colorectal Cancer: Fecal Imm unochemical Test (FIT) Annually [facility] 2011 Colorectal Cancer: High-sens itivity gFOBT Screening Annually [facility] 2011 Colorectal Cancer: Stool Col oguard Screening every 3 yrs 2011 Colorectal Cancer:CT Colonography Screening every 5 yr s 2011 Lipid Screening: Every 5 yrs for Women aged 45+ (or HM Modifier) ([facility]) 2012 Breast Cancer: Screening Kat ually age 50-74 yrs (or HM Modifier)([facility]) 2016 Pneumococcal Vaccination Scr eening: Patients 50+ yrs of age ([facility]) (1 of 1 - PCV) 2016 Zoster/Shingles Vaccine Seri es Screening: Adults aged 18+ yrs (or HM Modifiers)([facility]) (1 of 2) 2016 COVID-19 Vaccine Screening: Initial Series and Booster Status ([facility]) (2023- season) 2024 Flu Vaccination: Yearly for ages 18mos through 64 years (or Modifier)([facility]) 04/10/2025 Medical Devices Not on file Insurance [facility] Care Teams Associate Professor Of Geography Relationship Specialty Start Date End Date Pcp, No PCP - General Family Medicine 06/20/20
--- OUTSIDE RECORDS SUMMARY | 2024-12-26 08:47 | XMS_ITS | Clinical Summary ---
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 Discharge Disposition: Home or Self Care from Last 3 Months Social History Tobacco Use Types Packs/Day Years Used Date Smoking Tobacco: Never Assessed Comments Unknown Sex and Gender Information Value Date Recorded Sex Assigned at Not on file Legal Sex Female 12:01 PM EST Gender Identity Not on file Sexual Orientation Not on file Plan of Treatment Health Maintenance Due Date Last Done Comments Breast Cancer Screening 1966 Hepatitis B Vaccines (1 of 3 - 19+ 3-dose series) 1985 Cervical Cancer Screening: Pap Smear 1987 Pneumococcal Vaccine: 50+ Years (1 of 1 - PCV) 2016 COVID-19 Vaccine ( season) 2024 08/29/2023, 01/06/2022, 08/21/2021, Additional history exists Colorectal Cancer Screening: Colonoscopy 11/09/2024 Depression Screening 11/09/2024 HIV Screening 11/09/2024 Hepatitis C Screening 11/09/2024 Social Influencers of Health Screening 11/09/2024 Influenza Vaccine (Season Ended) 2025 DTaP,Tdap,and Td Vaccines (2 - Td or Tdap) 06/06/2025 06/06/2015 Zoster Vaccines Completed 03/31/2019, 01/12/2019 HIB Vaccines Aged Out No longer eligi ble based on patient's age to complete this topic HPV Vaccines Aged Out No longer eligi ble based on patient's age to complete this topic Hepatitis A Vaccines Aged Out No long er eligible based on patient's age to complete this topic IPV Vaccines Aged Out No longer eligi ble based on patient's age to complete this topic MMR Vaccines Aged Out No longer eligi ble based on patient's age to complete this topic Meningococcal ACWY Vaccine Aged Out N o longer eligible based on patient's age to complete this topic Meningococcal B Vaccine Aged Out No l onger eligible based on patient's age to complete this topic Pneumococcal Vaccine: Pediatrics (0 to 5 Years) and At-Risk Patients (6 to 64 Years) Aged Out No longer eligible based on patient's age to complete this topic RSV Immunization Patients Under 20 months Aged Out No longer eligible based on patient's age to complete this topic Varicella Vaccines Aged Out No longer eligible based on patient's age to complete this topic Procedures Procedure Name Priority Date/Time Associated Diagnosis Comments MR FOOT WO AND W CONTRAST LEFT Routine 11/09/2024 2:08 PM EST 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 ??Ill-defined low signal soft tissue in the 2nd intermetatarsal space, with extensive low signal soft tissue extending inferiorly into the plantar subcutaneous fat overlying the 2nd and 3rd metatarsals. ??There are areas of ill-defined curvilinear contrast enhancement. 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 ??Lobulated adjacent synovial cysts adjacent to the 2nd and 3rd metatarsal heads. 2. ??Prominent mural edema and contrast enhancement at the base of the 2nd metatarsal suggestive of a stress reaction. ??No discrete fracture line. -------- FINAL REPORT -------- Dictated By: Eloy Rendon Dictated Date: 11/10/2024 09:31 ET Assigned Physician: Eloy Rendon Reviewed and Electronically Signed By: Eloy Rendon Signed Date: 11/10/2024 10:12 ET Workstation ID: [id number] Transcribed By: Self Edit Transcribed Date: 11/10/2024 09:31 ET Narrative 11/10/2024 10:12 AM EST PROCEDURE: MRI of the left foot with and without intravenous contrast. HISTORY: left foot pain and swelling. COMPARISON: None. TECHNIQUE: Multiplanar multisequence MRI of the left foot with and without intravenous contrast administration. IV contrast dose: ??10 mL Dotarem from a 15 mL vial with 5 mL discarded. FINDINGS: Markers were placed to indicate a site of palpable concern and pain. ??There is prominent ill-defined low signal soft tissue in the plantar subcutaneous fat overlying the 2nd and 3rd metatarsal heads, extending into the 2nd intermetatarsal space. ??Mild curvilinear ill-defined contrast enhancement in the dorsal 3rd intermetatarsal space and tracking along the dorsal aspect of the 2nd metatarsal head, and curvilinear contrast enhancement along the medial plantar aspect of the 2nd metatarsal head. ??Lobulated fluid signal structure measuring 12 x 7 x 6 mm along the medial aspect of the 2nd MTP joint. ??Smaller lobulated fluid signal structure along the lateral plantar aspect of the 3rd MTP joint. Mild-moderate degenerative changes of the 1st metatarsophalangeal joint, with small osteophytes, cartilage irregularity, a small subchondral cyst and a small focus of subchondral marrow edema at the base of the proximal phalanx, and a small joint effusion. There is prominent marrow edema and contrast enhancement at the base of the 2nd metatarsal. Mild diffuse degenerative irregularity of the interphalangeal joints and of midfoot. The visualized flexor and extensor tendons appear normal. The Lisfranc and intermetatarsal ligaments are intact. Pes planus. Procedure Note Eloy Rendon MD - 11/10/2024 PROCEDURE: MRI of the left foot with and without intravenous contrast. HISTORY: left foot pain and swelling. COMPARISON: None. TECHNIQUE: Multiplanar multisequence MRI of the left foot with and withoutintravenous contrast administration. IV contrast dose: 10 mL Dotarem from a 15 mL vial with 5 mL discarded. FINDINGS: Markers were placed to indicate a site of palpable concern and pain.There is prominent ill-defined low signal soft tissue in the plantarsubcutaneous fat overlying the 2nd and 3rd metatarsal heads, extendinginto the 2nd intermetatarsal space. Mild curvilinear ill-defined contrastenhancement in the dorsal 3rd intermetatarsal space and tracking along thedorsal aspect of the 2nd metatarsal head, and curvilinear contrastenhancement along the medial plantar aspect of the 2nd metatarsal head.Lobulated fluid signal structure measuring 12 x 7 x 6 mm along the medialaspect of the 2nd MTP joint. Smaller lobulated fluid signal structurealong the lateral plantar aspect of the 3rd MTP joint. Mild-moderate degenerative changes of the 1st metatarsophalangeal joint,with small osteophytes, cartilage irregularity, a small subchondral cystand a small focus of subchondral marrow edema at the base of the proximalphalanx, and a small joint effusion. There is prominent marrow edema and contrast enhancement at the base ofthe 2nd metatarsal. Mild diffuse degenerative irregularity of the interphalangeal joints andof midfoot. The visualized flexor and extensor tendons appear normal. The Lisfranc and intermetatarsal ligaments are intact. Pes planus. IMPRESSION: 1. Ill-defined low signal soft tissue in the 2nd intermetatarsal space,with extensive low signal soft tissue extending inferiorly into theplantar subcutaneous fat overlying the 2nd and 3rd metatarsals. There areareas of ill-defined curvilinear contrast enhancement. The findings aresuggestive of a Claire's neuroma. Lobulated adjacent synovial cystsadjacent to the 2nd and 3rd metatarsal heads. 2. Prominent mural edema and contrast enhancement at the base of the 2ndmetatarsal suggestive of a stress reaction. No discrete fracture line. -------- FINAL REPORT -------- Dictated By: Eloy Rendon Dictated Date: 11/10/2024 09:31 ET Assigned Physician: Eloy Rendon Reviewed and Electronically Signed By: Eloy Rendon Signed Date: 11/10/2024 10:12 ET Workstation ID: [id number] Transcribed By: Self Edit Transcribed Date: 11/10/2024 09:31 ET Phong Hayes DPM IMG MRI PROCEDURES Fin al Result from Last 3 Months
== END 2024-12-26 08:27 | disposition home or self-care (01) ==
LOC: HO.MAMMO 08:26
PROVIDERS: PCP Internal Medicine; Visit Provider Internal Medicine
DX: Z13.820 Encounter for screening for osteoporosis (principal); Z78.0 Asymptomatic menopausal state
CPT/HCPCS: 77080

== ENCOUNTER → 2024-12-26 08:45 | Outpatient (BNV) | payer OTHER, SELFPAY | PROVIDERS: PCP Internal Medicine; Visit Provider Radiology Diagnostic Radiology | DX: E28.39 Other primary ovarian failure (principal) | CPT/HCPCS: 77080 ==